=== PATIENT | female | born 1940 | race Caucasian/White ===

== ENCOUNTER → 2017-05-20 | Outpatient (CLI) | payer OTHER, MEDICAID ==
[~2017-05-20] MED LIST: ASPIRIN325; ENOXAPARIN40 MG/0.1; GLUCOPHAGE XR500 MG PO; KEFLEX500 MG PO; LEVOTHYROXINE0.05 MG; LIORESAL 10 MG10 MG PO; LOVASTATIN 20 M20 MG PO; NAMENDA XR7 MG; OXYCODONE HCL 55 MG; PERCOCET 5-3251 EACH PO; PRINIVIL20 MG; PROPRANOLOL 1010 M1; VERAPAMIL E.R240 M1; VOLTAREN GEL 1100 G2 TOP
== END ==
LOC: M.MRI 05-13 12:10 → M.NUC 11:30 → M.CRD 11:30 → EDSTATUS 11:30
DX: M47.27 Other spondylosis with radiculopathy, lumbosacral region (principal); Z88.0 Allergy status to penicillin